=== PATIENT | male | born 1960 | race Caucasian/White ===

== ENCOUNTER → 2019-04-12 12:25 | Outpatient (CLI) | payer BC, SELFPAY ==
[2019-04-12 13:10] LABS: Add Manual Diff / Slide Review NO; Basophils Absolute Auto 100 /uL (0-100); Eosinophils Absolute Auto 200 /uL (0-450); Eosinophils Percent Auto 2.9 % (2-4); Hematocrit 49.5 % (41-53); Hemoglobin 16.6 g/dL (13.5-17.5); Lymphocytes Absolute Auto 1500 /uL (1100-4500); Lymphocytes Percent Auto 21.3 % (25-40); Mean Corpuscular HGB Conc 33.5 % (30-36); Mean Corpuscular Volume 92.5 fL (80-100); Monocytes Absolute Auto 500 /uL (0-900); Monocytes Percent Auto 7.5 % (3-14); Neutrophils Absolute Auto 4700 /uL (1500-7000); Neutrophils Percent Auto 67.3 % (50-75); Platelet Count 223 X10^3/uL (150-400); Red Blood Cell Count 5.36 X10^6/uL (4.5-5.9); Red Cell Distribution Width 13.6 % (11.6-14.8)
[2019-04-12 13:22] LABS: Alanine Aminotransferase 24 IU/L (21-72); Albumin 4.6 g/dL (3.5-5.0); Albumin Globulin Ratio 1.4 (1.0-2.8); Alkaline Phosphatase 60 U/L (38-126); Aspartate Aminotransferase 31 IU/L (17-59); BUN Creatinine Ratio 14.3 (6-22); Bilirubin Total 0.6 mg/dL (0.2-1.3); Blood Urea Nitrogen 10 mg/dL (9-20); Calcium 9.7 mg/dL (8.4-10.2); Carbon Dioxide 29 mmol/L (22-32); Chloride 100 mmol/L (98-107); Estimated Glomerular Filt Rate > 60.0 mL/min (>60); Globulin 3.4 g/dL (1.7-4.1); Glucose 95 mg/dL (80-110); HEMOLYSIS < 15 (0-50); Potassium 3.8 mmol/L (3.4-5.1); Sodium 139 mmol/L (137-145)
[2019-04-12 15:23] LABS: TSH w/ Reflex to FT4 1.33 uIU/mL (0.47-4.68)
== END ==
PROVIDERS: Visit Provider Physician Assistant
DX: R53.83 Other fatigue (principal)
CPT/HCPCS: 36415; 80053; 84443; 85025

== ENCOUNTER → 2019-05-10 09:20 | Outpatient (CLI) | payer BC, SELFPAY | PROVIDERS: Visit Provider Hospitalist | DX: R19.7 Diarrhea, unspecified (principal) ==

== ENCOUNTER → 2019-05-22 13:02 | Outpatient (CLI) | payer BC, SELFPAY ==
[2019-05-25 16:20] LABS: Fecal Immunochemical Test NOT DETECTED (NOT DETECTED)
== END ==
PROVIDERS: Visit Provider Hospitalist
DX: Z12.11 Encounter for screening for malignant neoplasm of colon (principal)
CPT/HCPCS: 82274

== ENCOUNTER → 2019-06-04 13:18 | Outpatient (CLI) | payer BC, SELFPAY | PROVIDERS: Visit Provider Physician Assistant | DX: J02.9 Acute pharyngitis, unspecified (principal) | CPT/HCPCS: 87070 ==

== ENCOUNTER → 2019-08-03 12:47 | Outpatient (CLI) | payer BC, SELFPAY ==
[2019-08-03 14:10] LABS: Prostate Specific Antigen 0.403 ng/mL (0.10-4.00)
== END ==
PROVIDERS: Visit Provider Hospitalist
DX: Z12.5 Encounter for screening for malignant neoplasm of prostate (principal)
CPT/HCPCS: 36415; 84153

== ENCOUNTER → 2019-09-05 07:32 | Outpatient (CLI) | payer BC, SELFPAY ==
[2019-09-05 09:03] LABS: BUN Creatinine Ratio 13.8 (6-22); Blood Urea Nitrogen 11 mg/dL (9-20); Calcium 9.5 mg/dL (8.4-10.2); Carbon Dioxide 31 mmol/L (22-32); Chloride 101 mmol/L (98-107); Estimated Glomerular Filt Rate > 60.0 mL/min (>60); Glucose 90 mg/dL (80-110); HEMOLYSIS < 15 (0-50); Potassium 5.1 mmol/L (3.4-5.1); Sodium 138 mmol/L (137-145)
== END ==
PROVIDERS: Visit Provider Hospitalist
DX: Z13.1 Encounter for screening for diabetes mellitus (principal)
CPT/HCPCS: 36415; 80048

== ENCOUNTER → 2019-10-13 08:59 | Outpatient (CLI) | payer BC, SELFPAY ==
[2019-10-13 09:35] LABS: Add Manual Diff / Slide Review NO; Basophils Absolute Auto 100 /uL (0-100); Basophils Percent Auto 1.5 % (0-2); Eosinophils Absolute Auto 200 /uL (0-450); Eosinophils Percent Auto 3.6 % (2-4); Hematocrit 45.3 % (41-53); Hemoglobin 15.4 g/dL (13.5-17.5); Lymphocytes Absolute Auto 1500 /uL (1100-4500); Mean Corpuscular HGB Conc 34.1 % (30-36); Mean Corpuscular Hemoglobin 31.2 PG (26-34); Mean Corpuscular Volume 91.5 fL (80-100); Monocytes Absolute Auto 500 /uL (0-900); Monocytes Percent Auto 9.7 % (3-14); Neutrophils Absolute Auto 2600 /uL (1500-7000); Neutrophils Percent Auto 54.2 % (50-75); Platelet Count 235 X10^3/uL (150-400); Red Blood Cell Count 4.95 X10^6/uL (4.5-5.9); Red Cell Distribution Width 13.4 % (11.6-14.8); White Blood Cell Count 4.8 X10^3/uL (4.5-11.0)
[2019-10-13 09:49] LABS: Alanine Aminotransferase 25 IU/L (<50); Albumin 4.4 g/dL (3.5-5.0); Albumin Globulin Ratio 1.5 (1.0-2.8); Alkaline Phosphatase 60 U/L (38-126); Aspartate Aminotransferase 30 IU/L (17-59); BUN Creatinine Ratio 18.8 (6-22); Blood Urea Nitrogen 15 mg/dL (9-20); Calcium 9.4 mg/dL (8.4-10.2); Carbon Dioxide 27 mmol/L (22-32); Chloride 104 mmol/L (98-107); Cholesterol 106 mg/dL (140-199); Estimated Glomerular Filt Rate > 60.0 mL/min (>60); Globulin 2.9 g/dL (1.7-4.1); Glucose 100 mg/dL (80-110); HDL Cholesterol 48 mg/dL (40-60); HEMOLYSIS < 15 (0-50); LDL Cholesterol Calculated 50 mg/dL (<100); Potassium 4.1 mmol/L (3.4-5.1); Sodium 139 mmol/L (137-145); Total Protein 7.3 g/dL (6.3-8.2); Triglycerides 41 mg/dL (35-150)
[2019-10-13 10:04] LABS: Free T3, Triiodothyronine Free 3.85 pg/mL (2.77-5.27); Free T4, Direct Thyroxine 0.87 ng/dL (0.78-2.19)
[2019-10-13 10:18] LABS: Thyroid Stimulating Hormone 2.45 uIU/mL (0.47-4.68)
[2019-10-15 16:28] LABS: Hepatitis A Antibody IgM NONREACTIVE; Hepatitis Acute Panel Interp 0.03; Hepatitis B Core Antibody IgM NONREACTIVE; Hepatitis B Surface Antigen NONREACTIVE; Hepatitis C Antibody NONREACTIVE
== END ==
PROVIDERS: PCP Nurse Practitioner; Visit Provider Nurse Practitioner
DX: Z00.00 Encounter for general adult medical examination without abnormal findings (principal); R10.11 Right upper quadrant pain; R10.12 Left upper quadrant pain; R42 Dizziness and giddiness
CPT/HCPCS: 36415; 80053; 80061; 80074; 84439; 84443; 84481; 85025

== ENCOUNTER → 2019-11-06 11:25 | Outpatient (CLI) | payer BC, SELFPAY ==
--- NOTE | 2019-11-06 11:26 | DI.US.S_ITS ---
PROCEDURE: US ABDOMEN COMPLETE INDICATIONS: RUQ ABD AND EPIGASTRIC PAIN TECHNIQUE: Real-time scanning was performed of the abdominal and retroperitoneal organs, with image documentation. COMPARISON: None. FINDINGS: Liver: Liver is normal in size and demonstrates diffuse increased echotexture. Gallbladder: Surgically absent. Biliary ducts: Intrahepatic bile ducts are non-dilated. Extrahepatic bile duct caliber measures 5 mm. Normal is 6-7 mm or less in diameter, or 10 mm or less post-cholecystectomy. Pancreas: Obscured by overlying bowel gas. Spleen: Spleen is mildly enlarged measuring 13 cm in length. Kidneys: Kidneys are normal in size and echotexture. Right kidney measures 10.5 cm long; left kidney measures 11.2 cm long. No hydronephrosis or nephrolithiasis. No solid masses. Aorta: Visualized aorta is normal in caliber at less than 3 cm. Iliacs: Proximal common iliac arteries are normal in caliber at less than 2.5 cm. IVC: Intrahepatic inferior vena cava is patent. Miscellaneous: No free abdominal fluid. IMPRESSION: 1. Diffusely increased hepatic echotexture. This finding is most likely secondary to hepatic fatty infiltration although other hepatocellular disease may have a similar appearance. Recommend clinical correlation. 2. Borderline splenomegaly. 3. Cholecystectomy. Dictated by: Neftali Arboleda M.D. on 11/06/2019 at 12:30 Approved by: Neftali Arboleda M.D. on 11/06/2019 at 12:32
== END ==
PROVIDERS: PCP Internal Medicine Cardiovascular Disease; Visit Provider Nurse Practitioner
DX: R10.11 Right upper quadrant pain (principal); R10.13 Epigastric pain; Z90.49 Acquired absence of other specified parts of digestive tract
CPT/HCPCS: 76700

== ENCOUNTER → 2019-12-15 08:22 | Outpatient (CLI) | payer BC, SELFPAY ==
[2019-12-15 09:32] LABS: Alanine Aminotransferase 33 IU/L (<50); Albumin 4.2 g/dL (3.5-5.0); Albumin Globulin Ratio 1.5 (1.0-2.8); Alkaline Phosphatase 55 U/L (38-126); Aspartate Aminotransferase 29 IU/L (17-59); BUN Creatinine Ratio 21.3 (6-22); Bilirubin Total 0.6 mg/dL (0.2-1.3); Blood Urea Nitrogen 17 mg/dL (9-20); Calcium 9.5 mg/dL (8.4-10.2); Carbon Dioxide 28 mmol/L (22-32); Chloride 100 mmol/L (98-107); Cholesterol 105 mg/dL (140-199); Estimated Glomerular Filt Rate > 60.0 mL/min (>60); Globulin 2.8 g/dL (1.7-4.1); Glucose 91 mg/dL (80-110); HDL Cholesterol 50 mg/dL (40-60); HEMOLYSIS 19 (0-50); LDL Cholesterol Calculated 48 mg/dL (<100); Potassium 4.5 mmol/L (3.4-5.1); Sodium 137 mmol/L (137-145); Triglycerides 36 mg/dL (35-150)
== END ==
PROVIDERS: PCP Family Medicine; Visit Provider Family Medicine
DX: K76.0 Fatty (change of) liver, not elsewhere classified (principal); Z13.228 Encounter for screening for other metabolic disorders
CPT/HCPCS: 36415; 80053; 80061

== ENCOUNTER → 2020-03-11 10:33 | Outpatient (CLI) | payer BC, SELFPAY ==
[2020-03-11 12:19] LABS: Alanine Aminotransferase 31 IU/L (<50); Albumin 4.3 g/dL (3.5-5.0); Albumin Globulin Ratio 1.3 (1.0-2.8); Alkaline Phosphatase 70 U/L (38-126); Aspartate Aminotransferase 33 IU/L (17-59); BUN Creatinine Ratio 21.9 (6-22); Bilirubin Total 0.5 mg/dL (0.2-1.3); Blood Urea Nitrogen 16 mg/dL (9-20); Calcium 9.4 mg/dL (8.4-10.2); Carbon Dioxide 25 mmol/L (22-32); Chloride 99 mmol/L (98-107); Estimated Glomerular Filt Rate > 60.0 mL/min (>60); Globulin 3.2 g/dL (1.7-4.1); Glucose 99 mg/dL (80-110); HEMOLYSIS 17 (0-50); Potassium 4.1 mmol/L (3.4-5.1); Sodium 135 mmol/L (137-145); Total Protein 7.5 g/dL (6.3-8.2)
== END ==
PROVIDERS: PCP Family Medicine; Referring Provider Family Medicine; Visit Provider Family Medicine
DX: K76.0 Fatty (change of) liver, not elsewhere classified (principal)
CPT/HCPCS: 36415; 80053

== ENCOUNTER → 2020-03-22 11:04 | Outpatient (CLI) | payer BC, SELFPAY ==
[2020-03-22 12:37] LABS: Uric Acid 5.9 mg/dL (3.5-8.5)
== END ==
PROVIDERS: PCP Family Medicine; Referring Provider Family Medicine; Visit Provider Family Medicine
DX: K76.0 Fatty (change of) liver, not elsewhere classified (principal)
CPT/HCPCS: 36415; 84550

== ENCOUNTER → 2020-04-01 07:05 | Outpatient (CLI) | payer BC, SELFPAY ==
[2020-04-04 00:34] LABS: ALT (SGPT) 26 IU/L (0-55); Alpha 2-Macroglobulins, QN 142 mg/dL (110-276); Apolipoprotein A-1 138 mg/dL (101-178); Bilirubin,Total 0.5 mg/dL (0.0-1.2); Fibrosis Score 0.15 (0.00-0.21); GGT 9 IU/L (0-65); Haptoglobin 79 mg/dL (32-363); Necroinflammat Act Grade A0-No activity (.)
== END ==
PROVIDERS: PCP Family Medicine; Referring Provider Nurse Practitioner Adult Health; Visit Provider Nurse Practitioner Adult Health
DX: K76.0 Fatty (change of) liver, not elsewhere classified (principal)
CPT/HCPCS: 36415; 81596

== ENCOUNTER → 2020-05-13 10:34 | Outpatient (CLI) | payer BC, SELFPAY ==
[2020-05-15 12:11] LABS: H. Pylori Antigen Stool Negative (Negative)
== END ==
PROVIDERS: PCP Family Medicine; Referring Provider Family Medicine; Visit Provider Family Medicine
DX: K76.0 Fatty (change of) liver, not elsewhere classified (principal)
CPT/HCPCS: 87338

== ENCOUNTER → 2020-07-09 07:39 | Outpatient (CLI) | payer BC, SELFPAY ==
--- NOTE | 2020-07-09 07:41 | DI.US.S_ITS ---
PROCEDURE: US ABDOMEN LIMITED INDICATIONS: RUQ PAIN TECHNIQUE: Real-time focused scanning was performed of the abdomen, with image documentation. COMPARISON: [facility], [place], US ABDOMEN COMPLETE, 11/06/2019, 11:37. FINDINGS: Liver is diffusely increased in echogenicity. No focal hepatic abnormalities identified. Normal hepatic size. Gallbladder surgically absent. No biliary dilatation. Pancreas suboptimally visualized. IMPRESSION: 1. Increased hepatic echogenicity noted possibly related to hepatic steatosis but other sources of hepatocellular disease cannot be excluded. Recommend clinical correlation. Dictated by: iTmothy MARTINEZ Interpreted: Nuzhat Gray MD on 07/10/2020 at 9:10 Approved by: Nuzhat Gray M.D. on 07/10/2020 at 10:53
== END ==
PROVIDERS: PCP Family Medicine; Referring Provider Family Medicine; Visit Provider Family Medicine
DX: K76.0 Fatty (change of) liver, not elsewhere classified (principal); R10.11 Right upper quadrant pain
CPT/HCPCS: 76705

== ENCOUNTER → 2020-07-23 11:43 | Outpatient (CLI) | payer BC, SELFPAY ==
[2020-07-23 12:40] LABS: Alanine Aminotransferase 29 IU/L (<50); Albumin 4.3 g/dL (3.5-5.0); Albumin Globulin Ratio 1.5 (1.0-2.8); Alkaline Phosphatase 64 U/L (38-126); Aspartate Aminotransferase 34 IU/L (17-59); Bilirubin Total 0.7 mg/dL (0.2-1.3); Bilirubin Unconjugated 0.6 mg/dL (0.0-1.1); Globulin 2.8 g/dL (1.7-4.1); HEMOLYSIS < 15 (0-50); Total Protein 7.1 g/dL (6.3-8.2)
== END ==
PROVIDERS: PCP Family Medicine; Referring Provider Family Medicine; Visit Provider Family Medicine
DX: K76.0 Fatty (change of) liver, not elsewhere classified (principal)
CPT/HCPCS: 36415; 80076